=== PATIENT | female | born 1960 | race Caucasian/White ===

== ENCOUNTER 2018-04-23 19:04 | Emergency (ER) | payer MEDICARE ==
[2018-04-23 19:09] VITALS: BP 156/88
== END 2018-04-23 19:46 | disposition left against medical advice (07) ==
LOC: EDSEX 19:04 → ED 19:40
DX: F22 Delusional disorders (principal); F20.9 Schizophrenia, unspecified; I10 Essential (primary) hypertension
CPT/HCPCS: 99284

== ENCOUNTER 2018-04-23 21:05 | Emergency (ER) | payer MEDICARE | END 2018-04-23 22:14 | disposition left against medical advice (07) | LOC: ED 22:08 | DX: Z53.21 Procedure and treatment not carried out due to patient leaving prior to being seen by health care provider (principal) ==

== ENCOUNTER 2018-04-23 22:42 | Emergency (ER) | payer MEDICARE ==
[~2018-04-23] VITALS: Ht 157.5 cm; Wt 48.0 kg
[2018-04-23 22:43] VITALS: BP 163/78
[2018-04-23] MEDS ORDERED: ZIPRASIDONE 20 MG INJ IM ONE ×2 (23:21→23:30)
[2018-04-24 00:14] LABS: AMPHETAMINE SCREEN, URINE Negative (Negative); BARBITURATE SCREEN, URINE Negative (Negative); BENZODIAZEPINE SCREEN, URINE Negative (Negative); CANNABINOID SCREEN, URINE Negative (Negative); COCAINE SCREEN, URINE Negative (Negative); METHADONE SCREEN, URINE Negative (Negative); OPIATE SCREEN, URINE Negative (Negative)
== END 2018-04-24 00:27 | disposition home or self-care (01) ==
LOC: ED 04-24 00:21
DX: F41.1 Generalized anxiety disorder (principal); Z72.9 Problem related to lifestyle, unspecified; I10 Essential (primary) hypertension; F20.9 Schizophrenia, unspecified
CPT/HCPCS: 80307; 99284

== ENCOUNTER 2018-05-23 16:21 | Emergency (ER) | payer MEDICARE ==
[~2018-05-23] VITALS: Ht 175.3 cm; Wt 76.4 kg
[2018-05-23 17:12] VITALS: BP 156/111
== END 2018-05-23 17:14 | disposition home or self-care (01) ==
LOC: ED 17:00
DX: I10 Essential (primary) hypertension (principal); B35.4 Tinea corporis; Z76.0 Encounter for issue of repeat prescription; F41.1 Generalized anxiety disorder; F20.9 Schizophrenia, unspecified; F17.200 Nicotine dependence, unspecified, uncomplicated
CPT/HCPCS: 99283

== ENCOUNTER 2018-06-07 10:38 | Emergency (ER) | payer MEDICARE ==
[~2018-06-07] VITALS: Ht 175.3 cm; Wt 76.2 kg
[2018-06-07 10:57] VITALS: BP 155/103
[2018-06-07] MEDS ORDERED: PALIPERIDONE PALMITATE 117 MG/0.75 ML ML IM ONE (14:00)
== END 2018-06-07 14:02 | disposition home or self-care (01) ==
LOC: ED 13:55
DX: F20.9 Schizophrenia, unspecified (principal); I10 Essential (primary) hypertension; F17.200 Nicotine dependence, unspecified, uncomplicated; Z79.899 Other long term (current) drug therapy
CPT/HCPCS: 99283